=== PATIENT | female | born 1970 | race African-American/Black ===

== ENCOUNTER 2018-06-14 02:04 | Emergency (ER) | payer SELFPAY ==
[2018-06-14] MEDS ORDERED: Amoxicillin/Potassium Clav 875 MG TAB ONE (03:17)
[2018-06-14] MEDS ORDERED: Adacel (T-DAP) 0.5 ML VIAL ONE (03:44)
--- NOTE | 2018-06-14 07:57 | RAD ---
LEFT THIRD TOE: Date: 06-14-18 There is a minimal fracture of the terminal tuft of the distal phalanx of the third toe. There is no displacement. The remainder of the toe appears intact. IMPRESSION: Tuft fracture of the third toe. Code T POS: HOME
== END 2018-06-14 03:59 | disposition home or self-care (01) ==
LOC: BURERS 02:04
DX: S92.532A Displaced fracture of distal phalanx of left lesser toe(s), initial encounter for closed fracture (principal); E03.9 Hypothyroidism, unspecified; F41.9 Anxiety disorder, unspecified; F32.9 Major depressive disorder, single episode, unspecified; E66.9 Obesity, unspecified; W20.8XXA Other cause of strike by thrown, projected or falling object, initial encounter
CPT/HCPCS: 90471; 90715